=== PATIENT | female | born 1945 | race Caucasian/White ===

== ENCOUNTER 2016-09-22 11:45 | Emergency (ER) | payer MEDICARE ==
[~2016-09-22] VITALS: Ht 157.5 cm; Wt 55.0 kg
[2016-09-22] MEDS ORDERED: METH2.5T6 PO (12:05)
[2016-09-22] MEDS ORDERED: [UNRECOGNIZED DRUG - REMARK] PO (12:07)
[2016-09-22 12:41] LABS: BASOPHILS % (AUTO) 0.6 % (0.0-2.0); EOSINOPHILS % (AUTO) 0.5 % (1.0-6.0); HEMATOCRIT 45.4 % (36-46); HEMOGLOBIN 14.9 g/dL (12.0-16.0); LYMPHOCYTES # (AUTO) 1.1 K/uL (1.0-4.8); LYMPHOCYTES % (AUTO) 29.9 % (22.0-44.0); MEAN CORPUSCULAR HEMOGLOBIN 30.4 pg (26.0-34.0); MEAN CORPUSCULAR HGB CONC 32.9 G/dL (31.0-37.0); MEAN CORPUSCULAR VOLUME 92 fL (80-100); MONOCYTES # (AUTO) 0.4 K/uL (0.1-1.0); MONOCYTES % (AUTO) 10.6 % (2.0-9.0); NEUTROPHILS # (AUTO) 2.1 K/uL (1.8-7.7); NEUTROPHILS % (AUTO) 58.4 % (40.0-70.0); PLATELET COUNT (AUTO) 181 K/uL (150-450); RED BLOOD CELL COUNT(AUTO) 4.91 MIL/uL (4.00-5.20); RED CELL DISTRIBUTION WIDTH 15.7 % (11.5-14.5); WHITE BLOOD COUNT (AUTO) 3.7 K/uL (4.5-11.0)
[2016-09-22 12:50] LABS: ANION GAP 9 mmol/L (8-16); CALCIUM, TOTAL 8.1 mg/dL (8.8-10.5); CARBON DIOXIDE 26 mmol/L (22-29); CHLORIDE 94 mmol/L (98-107); CREATININE 0.58 mg/dL (0.60-1.30); GLOMERULAR FILTR. RATE CALC > 60 mL/min (>60); POTASSIUM 3.9 mmol/L (3.5-5.1); SODIUM SERUM 129 mmol/L (136-145); UREA NITROGEN, BLOOD 8 mg/dL (7-18)
[2016-09-22 12:56] LABS: ALANINE AMINOTRANSFERASE 163 U/L (12-78); ALBUMIN 3.1 g/dL (3.4-5.0); ASPARTATE AMINOTRANSFERASE 107 U/L (15-37); BILIRUBIN,TOTAL 0.3 mg/dL (0.1-1.0); TOTAL PROTEIN, SERUM 6.7 g/dL (6.4-8.2)
[2016-09-22 13:05] LABS: INFLUENZA TYPE B NEGATIVE FOR TYPE B (NEGATIVE)
[2016-09-22] MEDS ORDERED: ACETAMINOPHEN 500 MG TABLET PO ONE ×2 (17:15)
[2016-09-22] MEDS ORDERED: OSELTAMIVIR PHOSPHATE 75 MG CAPSULE PO ONE (17:15)
[2016-09-22] MEDS ORDERED: SODIUM CHLORIDE 0.9% 1,000 ML IV ONE ×2 (17:30)
[2016-09-22 18:11] LABS: APPEARANCE,URINE CLEAR (CLEAR); GLUCOSE, URINE (UA) NEGATIVE (NEGATIVE); KETONES,URINE TRACE mg/dL (NEGATIVE); LEUKOCYTE ESTERASE ,URINE NEGATIVE (NEGATIVE); OCCULT BLOOD,URINE NEGATIVE (NEGATIVE); PH,URINE 7.5 (5.0-8.0); PROTEIN,URINE NEGATIVE (NEGATIVE)
[2016-09-22 18:15] LABS: ADD UA MICROSCOPIC NO
[2016-09-22 19:30] LABS: ANION GAP 9 mmol/L (8-16); CALCIUM, TOTAL 7.4 mg/dL (8.8-10.5); CARBON DIOXIDE 23 mmol/L (22-29); CHLORIDE 98 mmol/L (98-107); CREATININE 0.44 mg/dL (0.60-1.30); GLOMERULAR FILTR. RATE CALC > 60 mL/min (>60); POTASSIUM 3.5 mmol/L (3.5-5.1); SODIUM SERUM 130 mmol/L (136-145); UREA NITROGEN, BLOOD 7 mg/dL (7-18)
[2016-09-22 20:41] VITALS: BP 118/72
== END 2016-09-22 20:47 | disposition home or self-care (01) ==
LOC: EMS 11:45
DX: J09.X2 Influenza due to identified novel influenza A virus with other respiratory manifestations (principal); E87.1 Hypo-osmolality and hyponatremia
CPT/HCPCS: 36415; 71010; 80048; 80053; 81003; 85025; 87804; 96360; 99285; J7030

== ENCOUNTER 2018-08-06 00:38 | Emergency (ER) | payer MEDICARE ==
[~2018-08-06] VITALS: Ht 162.6 cm; Wt 52.3 kg
[~2018-08-06 00:38] MED LIST: METH2.5T6 PO; [UNRECOGNIZED DRUG - REMARK] PO
[2018-08-06] MEDS: KETOROLAC TROMETHAMINE 60 MG/2 ML VIAL IM ONE (02:12)
[2018-08-06 03:11] LABS: BASOPHILS % (AUTO) 0.4 % (0.0-2.0); HEMATOCRIT 41.6 % (36-46); HEMOGLOBIN 14.1 g/dL (12.0-16.0); LYMPHOCYTES # (AUTO) 1.2 K/uL (1.0-4.8); LYMPHOCYTES % (AUTO) 25.8 % (22.0-44.0); MEAN CORPUSCULAR HEMOGLOBIN 36.4 pg (26.0-34.0); MEAN CORPUSCULAR HGB CONC 33.9 G/dL (31.0-37.0); MEAN CORPUSCULAR VOLUME 108 fL (80-100); MONOCYTES # (AUTO) 0.5 K/uL (0.1-1.0); MONOCYTES % (AUTO) 11.2 % (2.0-9.0); NEUTROPHILS # (AUTO) 2.9 K/uL (1.8-7.7); NEUTROPHILS % (AUTO) 60.6 % (40.0-70.0); PLATELET COUNT (AUTO) 175 K/uL (150-450); RED BLOOD CELL COUNT(AUTO) 3.87 MIL/uL (4.00-5.20); RED CELL DISTRIBUTION WIDTH 17.6 % (11.5-14.5)
[2018-08-06 03:16] LABS: ANION GAP 7 mmol/L (8-16); CALCIUM, TOTAL 8.4 mg/dL (8.8-10.5); CARBON DIOXIDE 26 mmol/L (22-29); CHLORIDE 105 mmol/L (98-107); CREATININE 0.41 mg/dL (0.60-1.30); GLUCOSE,RANDOM 100 mg/dL (70-110); SODIUM SERUM 138 mmol/L (136-145); UREA NITROGEN, BLOOD 9 mg/dL (7-18)
[2018-08-06 03:22] LABS: ALANINE AMINOTRANSFERASE 44 U/L (12-78); ALBUMIN 2.6 g/dL (3.4-5.0); ALKALINE PHOSPHATASE 148 U/L (46-116); ASPARTATE AMINOTRANSFERASE 32 U/L (15-37); BILIRUBIN,TOTAL 0.6 mg/dL (0.1-1.0); TOTAL PROTEIN, SERUM 6.3 g/dL (6.4-8.2)
[2018-08-06 03:32] LABS: GLOMERULAR FILTR. RATE CALC > 60 mL/min (>60)
[2018-08-06 04:07] VITALS: BP 130/62
== END 2018-08-06 04:09 | disposition home or self-care (01) ==
LOC: EMS 00:38
DX: M94.0 Chondrocostal junction syndrome [Tietze] (principal); M19.90 Unspecified osteoarthritis, unspecified site; Z90.11 Acquired absence of right breast and nipple; Z85.3 Personal history of malignant neoplasm of breast
CPT/HCPCS: 36415; 71045; 80053; 84484; 85025; 93005; 96372; 99284; J1885

== ENCOUNTER 2023-07-04 11:05 | Emergency (ER) | payer MEDICARE ==
[~2023-07-04] VITALS: Ht 157.5 cm; Wt 48.2 kg
[~2023-07-04 11:05] MED LIST changes: -[UNRECOGNIZED DRUG - REMARK] PO
[2023-07-04 11:12] VITALS: TEMP 98.3
[2023-07-04] MEDS ORDERED: KETOROLAC TROMETHAMINE 60 MG/2 ML VIAL IM ONE (13:30)
[2023-07-04] MEDS ORDERED: METHOCARBAMOL 500 MG TABLET PO ONE (13:30)
[2023-07-04] MEDS ORDERED: METH-659 PO (13:43)
[2023-07-04] MEDS ORDERED: IBUP-1492 PO (13:43)
[2023-07-04 13:59] VITALS: BP 132/76; PULSE 80; RESP 16
== END 2023-07-04 14:01 | disposition home or self-care (01) ==
LOC: EMS 11:08
DX: S13.4XXA Sprain of ligaments of cervical spine, initial encounter (principal); M19.90 Unspecified osteoarthritis, unspecified site; Z90.11 Acquired absence of right breast and nipple; X58.XXXA Exposure to other specified factors, initial encounter; Y93.89 Activity, other specified; Y92.89 Other specified places as the place of occurrence of the external cause; Y99.8 Other external cause status
CPT/HCPCS: 99283; 96372; J1885

== ENCOUNTER 2024-08-24 18:20 | Emergency (ER) | payer OTHER ==
[~2024-08-24] VITALS: Ht 154.9 cm; Wt 54.5 kg
[~2024-08-24 18:20] MED LIST changes: +IBUP-1492 PO; +METH-659 PO
[2024-08-24 18:26] VITALS: TEMP 98.2
[2024-08-24] MEDS ORDERED: CHOL200074 PO (18:30)
[2024-08-24] MEDS ORDERED: LEVO25TA9 PO (18:30)
[2024-08-24] MEDS ORDERED: FOLI0.4T14 PO (18:30)
[2024-08-24 20:43] LABS: BASOPHILS % (AUTO) 0.4 % (0.0-2.0); EOSINOPHILS % (AUTO) 3.3 % (1.0-6.0); HEMATOCRIT 37.9 % (36-46); HEMOGLOBIN 12.7 g/dL (12.0-16.0); LYMPHOCYTES # (AUTO) 1.1 K/uL (1.0-4.8); LYMPHOCYTES % (AUTO) 25.6 % (22.0-44.0); MEAN CORPUSCULAR HEMOGLOBIN 33.6 pg (26.0-34.0); MEAN CORPUSCULAR HGB CONC 33.6 G/dL (31.0-37.0); MEAN CORPUSCULAR VOLUME 100 fL (80-100); MONOCYTES # (AUTO) 0.6 K/uL (0.1-1.0); MONOCYTES % (AUTO) 12.3 % (2.0-9.0); NEUTROPHILS # (AUTO) 2.6 K/uL (1.8-7.7); NEUTROPHILS % (AUTO) 58.4 % (40.0-70.0); PLATELET COUNT (AUTO) 139 K/uL (150-450); RED BLOOD CELL COUNT(AUTO) 3.79 MIL/uL (4.00-5.20); RED CELL DISTRIBUTION WIDTH 16.9 % (11.5-14.5); WHITE BLOOD COUNT (AUTO) 4.5 K/uL (4.5-11.0)
[2024-08-24 20:50] LABS: ANION GAP 4 mmol/L (8-16); CARBON DIOXIDE 28 mmol/L (22-29); CHLORIDE 106 mmol/L (98-107); CREATININE 0.66 mg/dL (0.60-1.30); GLOMERULAR FILTR. RATE CALC > 60 mL/min (>60); GLUCOSE,RANDOM 105 mg/dL (70-110); POTASSIUM 4.1 mmol/L (3.5-5.1); SODIUM SERUM 138 mmol/L (136-145); UREA NITROGEN, BLOOD 10 mg/dL (7-18)
[2024-08-24 22:00] VITALS: BP 135/67; PULSE 80; RESP 18; O2SAT 99
[2024-08-24] MEDS ORDERED: DIPH25CA85 PO (22:20)
[2024-08-24] MEDS ORDERED: METH4TAB3 PO (22:20)
[2024-08-24] MEDS: DiphenhydrAMINE HCL 50 MG CAPSULE PO ONE (22:27)
[2024-08-24] MEDS: DEXAMETHASONE SOD PHOS 4 MG/ML 5 ML VIAL IM ONE (22:27)
== END 2024-08-24 22:31 | disposition home or self-care (01) ==
LOC: EMS 18:20
DX: L25.9 Unspecified contact dermatitis, unspecified cause (principal); Z85.3 Personal history of malignant neoplasm of breast
CPT/HCPCS: 99283; 80048; 85025; 36415; 96372; J1100

== ENCOUNTER 2025-03-20 13:37 | Emergency (ER) | payer OTHER ==
[~2025-03-20] VITALS: Ht 157.5 cm; Wt 45.5 kg
[~2025-03-20 13:37] MED LIST changes: +CHOL200074 PO; +DIPH25CA85 PO; +FOLI0.4T3 PO; -IBUP-1492 PO; +LEVO25TA9 PO; -METH-659 PO; -METH2.5T6 PO; +METH4TAB3 PO
[2025-03-20 13:42] VITALS: TEMP 98
[2025-03-20] MEDS ORDERED: LEVO75 PO (15:26)
[2025-03-20] MEDS ORDERED: CHOL25TA4 PO (15:26)
[2025-03-20] MEDS ORDERED: CALC-462 PO (15:26)
[2025-03-20] MEDS: LIDOCAINE 5% TRANSDERMAL PATCH TD ONE (15:44)
[2025-03-20] MEDS: KETOROLAC TROMETHAMINE 30 MG/ML VIAL IM ONE (15:44)
[2025-03-20] MEDS ORDERED: IBUP-1506 PO (16:25)
[2025-03-20] MEDS ORDERED: TIZA-211 PO (16:25)
[2025-03-20 16:31] VITALS: BP 120/76; PULSE 67; RESP 16; O2SAT 96
== END 2025-03-20 16:47 | disposition home or self-care (01) ==
LOC: EMS 13:38
DX: M62.830 Muscle spasm of back (principal); M06.9 Rheumatoid arthritis, unspecified; Z85.3 Personal history of malignant neoplasm of breast; Z79.899 Other long term (current) drug therapy
CPT/HCPCS: 99283; 96372; J1885